=== PATIENT | male | born 1950 | race Two or more races ===

== ENCOUNTER 2020-04-14 02:59 | Observation (INO) | payer OTHER ==
[~2020-04-14] VITALS: Ht 167.6 cm; Wt 83.0 kg
[2020-04-14] MEDS ORDERED: METO25TA6 PO (03:18)
[2020-04-14] MEDS ORDERED: LISI40TA4 PO (03:18)
[2020-04-14] MEDS ORDERED: FLO0.4C PO (03:18)
[2020-04-14] MEDS ORDERED: AMLO10TA PO (03:18)
[2020-04-14] MEDS ORDERED: ASPI81TA52 PO (03:18)
[2020-04-14] MEDS ORDERED: ATOR80TA PO (03:18)
[2020-04-14 03:27] LABS: BASOPHILS % (AUTO) 0.4 % (0-1); EOSINOPHILS # (AUTO) 0.1 X10'3 (0-0.9); EOSINOPHILS % (AUTO) 1.2 % (0-6); HEMATOCRIT 39.9 % (42.0-52.0); HEMOGLOBIN 13.8 g/dl (14.0-17.9); LYMPHOCYTES % (AUTO) 13.3 % (21-51); MEAN CORPUSCULAR HGB CONC 34.5 g/dL (33.0-36.5); MEAN CORPUSCULAR VOLUME 92.9 FL (78-98); MEAN PLATELET VOLUME 7.7 FL (7.4-10.4); MONOCYTES # (AUTO) 0.5 X10'3 (0-0.9); MONOCYTES % (AUTO) 6.4 % (2-12); NEUTROPHILS # (AUTO) 5.8 X10'3 (1.8-7.7); NEUTROPHILS % (AUTO) 78.7 % (42-75); PLATELET COUNT 176 X10'3 (140-440); RED CELL DISTRIBUTION WIDTH 13.3 % (11.5-14.5); WHITE BLOOD COUNT 7.3 X10'3 (4.5-11.0)
[2020-04-14 03:39] LABS: ALANINE AMINOTRANSFERASE 38 U/L (12-78); ALBUMIN 3.4 G/DL (3.4-5.0); ALBUMIN/GLOBULIN RATIO 1.1 (1.1-1.5); ALKALINE PHOSPHATASE 102 IU/L (46-116); ANION GAP 6 (8-16); ASPARTATE AMINO TRANSFERASE 15 U/L (10-37); BILIRUBIN,TOTAL 0.5 MG/DL (0.1-1.0); BLOOD UREA NITROGEN 17 MG/DL (7-18); BUN/CREATININE RATIO 18.9 (5.4-32.0); CALCIUM 8.4 MG/DL (8.5-10.1); CHLORIDE 109 MMOL/L (99-107); GLUCOSE 127 MG/DL (70-104); POTASSIUM 4.6 MMOL/L (3.5-5.1); SODIUM 143 MMOL/L (135-145); TOTAL CARBON DIOXIDE 28.3 MMOL/L (24-32); TOTAL PROTEIN 6.6 G/DL (6.4-8.2); eGFR 83 ML/MIN
[2020-04-14] MEDS ORDERED: magnesium Cl slow-release 64mg tablet PO PRN (05:00)
[2020-04-14] MEDS ORDERED: magnesium 2GM in 50ml NS 50 ML IV PRN (05:00)
[2020-04-14] MEDS ORDERED: potassium CL 10mEq/100ml bag 100 ML IV PRN ×2 (05:00)
[2020-04-14] MEDS ORDERED: acetaminophen 325mg tablet PO PRN ×2 (05:00)
[2020-04-14] MEDS ORDERED: ondansetron/PF 4mg/2ml inj IV PRN (05:00)
[2020-04-14] MEDS ORDERED: potassium Cl 20 mEq SR tablet PO PRN ×2 (05:00)
[2020-04-14] MEDS ORDERED: magnesium 4gm in 100ml NS 100 ML IV PRN (05:00)
--- NOTE | 2020-04-14 05:19 | NUR ---
Contact numbers for daughter Diana Landon or
--- NOTE | 2020-04-14 07:10 | NUR ---
Patient in room ED 4. I have received report from Yuni SANCHEZ and had the opportunity to ask questions and assume patient care.
[2020-04-14] MEDS: K and/or MAG REPLACEMENT MC SCH ×2 (08:00→20:00)
[2020-04-14] MEDS ORDERED: lisinopril 20mg tablet PO SCH (08:00)
[2020-04-14] MEDS: normal saline 1000ml 1,000 ML IV SCH ×2 (08:34→15:00)
[2020-04-14] MEDS: atorvastatin 20mg tablet PO SCH (08:34)
[2020-04-14] MEDS: aspirin 81mg tablet.DR PO SCH (08:34)
[2020-04-14 08:41] VITALS: BP 115/51
[2020-04-14] MEDS: heparin, porcine 5000 units/ml vial SQ SCH ×2 (08:42→20:30)
[2020-04-14] MEDS: amLODIPine 5mg tablet PO SCH (08:43)
[2020-04-14] MEDS: lisinopril 20mg tablet PO SCH (08:43)
[2020-04-14 11:00] VITALS: BP 145/59
[2020-04-14 15:00] VITALS: BP 118/60
[2020-04-14 18:00] VITALS: BP 157/73
--- NOTE | 2020-04-14 18:00 | NUR ---
Patient in room PCU 3013. I have received report from Valerie SANCHEZ and had the opportunity to ask questions and assume patient care.
--- NOTE | 2020-04-14 18:13 | NUR ---
Problems reprioritized. Patient report given, questions answered & plan of care reviewed with Maki SANCHEZ.
[2020-04-14] MEDS ORDERED: tamsulosin 0.4mg capsule PO SCH (21:00)
[2020-04-14 22:00] VITALS: BP 148/67
--- NOTE | 2020-04-15 | NUR ---
Previous event Patient stated that he had an episode like this before (unwell, anxious, low heart rate). It happened about a month ago and he was outside in the heat, started to feel unwell and took him a couple of hours of rest to get back to normal. He also states that he used to be very athletic. Will pass on the information to day shift.
[2020-04-15] MEDS: normal saline 1000ml 1,000 ML IV SCH ×2 (00:04→11:00)
[2020-04-15 02:00] VITALS: BP 136/61
[2020-04-15 06:16] LABS: ALANINE AMINOTRANSFERASE 32 U/L (12-78); ALBUMIN 3.2 G/DL (3.4-5.0); ALBUMIN/GLOBULIN RATIO 0.9 (1.1-1.5); ALKALINE PHOSPHATASE 102 IU/L (46-116); ANION GAP 8 (8-16); ASPARTATE AMINO TRANSFERASE 13 U/L (10-37); BASOPHILS % (AUTO) 0.4 % (0-1); BILIRUBIN,TOTAL 0.7 MG/DL (0.1-1.0); BLOOD UREA NITROGEN 10 MG/DL (7-18); BUN/CREATININE RATIO 13.5 (5.4-32.0); CALCIUM 8.3 MG/DL (8.5-10.1); CHLORIDE 111 MMOL/L (99-107); CREATININE 0.74 MG/DL (0.60-1.10); EOSINOPHILS # (AUTO) 0.1 X10'3 (0-0.9); EOSINOPHILS % (AUTO) 1.5 % (0-6); GLUCOSE 93 MG/DL (70-104); HEMATOCRIT 42.9 % (42.0-52.0); HEMOGLOBIN 14.7 g/dl (14.0-17.9); LYMPHOCYTES # (AUTO) 1.2 X10'3 (1.1-4.8); LYMPHOCYTES % (AUTO) 21.9 % (21-51); MEAN CORPUSCULAR HEMOGLOBIN 32.2 PG (27.0-31.0); MEAN CORPUSCULAR HGB CONC 34.3 g/dL (33.0-36.5); MEAN PLATELET VOLUME 8.1 FL (7.4-10.4); MONOCYTES # (AUTO) 0.3 X10'3 (0-0.9); MONOCYTES % (AUTO) 6.3 % (2-12); NEUTROPHILS # (AUTO) 3.8 X10'3 (1.8-7.7); NEUTROPHILS % (AUTO) 69.9 % (42-75); PLATELET COUNT 188 X10'3 (140-440); POTASSIUM 3.9 MMOL/L (3.5-5.1); RED BLOOD COUNT 4.56 X10'6 (4.70-6.10); RED CELL DISTRIBUTION WIDTH 13.7 % (11.5-14.5); SODIUM 141 MMOL/L (135-145); TOTAL CARBON DIOXIDE 22.5 MMOL/L (24-32); TOTAL PROTEIN 6.6 G/DL (6.4-8.2); WHITE BLOOD COUNT 5.4 X10'3 (4.5-11.0); eGFR > 90 ML/MIN
--- NOTE | 2020-04-15 06:16 | NUR ---
Problems reprioritized. Patient report given, questions answered & plan of care reviewed with Valerie SANCHEZ.
--- NOTE | 2020-04-15 06:42 | NUR ---
Patient in room PCU 3013. I have received report from Maki SANCHEZ and had the opportunity to ask questions and assume patient care.
[2020-04-15 07:00] VITALS: BP 139/65
[2020-04-15] MEDS: K and/or MAG REPLACEMENT MC SCH (08:00)
[2020-04-15] MEDS: atorvastatin 20mg tablet PO SCH (08:00)
[2020-04-15] MEDS: amLODIPine 5mg tablet PO SCH (08:00)
[2020-04-15] MEDS: aspirin 81mg tablet.DR PO SCH (09:52)
[2020-04-15 09:53] VITALS: BP_SYST 183
[2020-04-15] MEDS: heparin, porcine 5000 units/ml vial SQ SCH (09:53)
[2020-04-15] MEDS: lisinopril 20mg tablet PO SCH (09:53)
[2020-04-15] MEDS ORDERED: pneumococcal 23-VAL P-sac vacc 25 mcg/0.5ml vial IMVAC ONE (10:00)
[2020-04-15] MEDS ORDERED: LISI-600 PO (12:32)
--- NOTE | 2020-04-15 13:44 | NUR ---
Patient was discharged to home at 1330. He was picked up by his daughter. 2 PIV were removed with cannulas intact. RX was sent to [facility] in [place]. D/C instructions were reviewed with the patient. Patrick nurse aide translated for me so I would be confident patient understood directions and had the opportunity to ask any questions.
== END 2020-04-15 13:30 | disposition home or self-care (01) ==
LOC: ER 03:00 → ED HOLD 04:57 → PCU 3S 07:15
PROVIDERS: ADMIT Internal Medicine; ATTEND Internal Medicine
DX: R00.1 Bradycardia, unspecified (principal); R42 Dizziness and giddiness; T44.7X5A Adverse effect of beta-adrenoreceptor antagonists, initial encounter; R94.31 Abnormal electrocardiogram [ECG] [EKG]; I10 Essential (primary) hypertension; E78.5 Hyperlipidemia, unspecified; I25.10 Atherosclerotic heart disease of native coronary artery without angina pectoris; N40.0 Benign prostatic hyperplasia without lower urinary tract symptoms; E78.00 Pure hypercholesterolemia, unspecified; Z87.891 Personal history of nicotine dependence; Z23 Encounter for immunization; Z79.82 Long term (current) use of aspirin; Z79.899 Other long term (current) drug therapy; X58.XXXA Exposure to other specified factors, initial encounter; Y93.89 Activity, other specified; Y92.89 Other specified places as the place of occurrence of the external cause
CPT/HCPCS: 36415; 71045; 80053; 83735; 83880; 84484; 85025; 87081; 90471; 90732; 93005; 93306; 96360; 96361; 96372; 97161; 97530; 99285; G0378; J1644; J7030